=== PATIENT | male | born 1990 | race Caucasian/White ===

== ENCOUNTER 2018-12-02 16:43 | Emergency (ER) | payer MEDICAID ==
[~2018-12-02] VITALS: Ht 180.3 cm; Wt 84.0 kg
[2018-12-02 16:49] VITALS: Ht 180.3 cm; Wt 84.0 kg
--- NOTE | 2018-12-02 17:23 | ERD ---
ER Documentation Chief Complaint Chief Complaint hit face on wall while swimming , no tko/dizziness/peter HPI 28-year-old male with no reported past medical surgical history who presents with complaint of left facial pain after sustaining a laceration to the left cheek. States he jumped into a pool and sustained an injury to his face. Was able to extract himself from the pool under his own power. Noticed bleeding to the left side of face, subsequently family members placed [place] coffee on wound to stop bleeding. He denies any loss of consciousness, persistent hea dache or dizziness, blurry vision, chest pain, shortness of breath, dyspnea, or any other injuries. Does not recall when he got his tetanus vaccination. ROS All systems reviewed and are negative except as per history of present illness. Medications Home Meds Active Scripts Ibuprofen* (Motrin*) 600 Mg Tab, 600 MG PO Q6, #30 TAB Prov:ERINN COMBS PA-C 12/02/18 Allergies Allergies: Coded Allergies: No Known Allergy (Unverified , 12/02/18) FmHx Family History: No diabetes, No coronary disease, No other Physical Exam Vitals Vital Signs Date Temp Pulse Resp B/P (MAP) Pulse Ox O2 O2 Flow FiO2 Time Delivery Rate 12/02/18 99.0 97 16 145/70 99 16:49 (95) Physical Exam I have reviewed the triage vital signs. Const: Well nourished, well developed, appears stated age Eyes: PERRL, no conjunctival injection HENT: NCAT, Neck supple without meningismus CV: RRR, Warm, well-perfused extremities RESP: CTAB, Unlabored respiratory effort GI: soft, non-tender, non-distended, no masses MSK: No gross deformities appreciated Skin: Left cheek with 2 half centimeter , with tissue wound to forehead Neuro: grossly non focal Psych: Appropriate mood and affect. Results 24 hrs Current Medications Medications Dose Sig/Gaurang Start Time Status Last (Trade) Ordered Route PRN Stop Time Admin Dose Reason Admin Diphtheria/ 0.5 ml ONCE ONCE 12/02/18 DC 12/02/18 Tetanus/Acell IM* 17:30 17:42 Pertussis 12/02/18 17:31 (Adacel) Lidocaine 20 ml ONCE ONCE 12/02/18 DC (Xylocaine SC 17:30 1% (Mdv) 20 12/02/18 17:31 ml) Procedures/MDM 28-year-old male presents with facial laceration. Patient is alert appropriate with a unremarkable neurological exam. Tdap given Laceration Repair by me: Anesthesia: 1% lidocaine locally Location: Left cheek Tendon/Joint/Nerves: No injury Foreign body: None detected after copious irrigation and exploration Technique: Simple Interrupted Sutures Complexity: No subcutaneous sutures/mucosal repair/edge excision Post Closure Length: 2 cm Patient's bleeding was easily controlled in the department and there is no indication of anemia. No evidence of compartment syndrome, neurologic injury, vascular injury, open joint, tendon laceration, or foreign body. Patient is appropriate for outpatient follow up. 48 hour wound check. Scar minimization instructions given. Departure Diagnosis: Primary Impression: Laceration Condition: Stable ERINN COMBS PA-C Dec 02, 2018 17:23
[2018-12-02] MEDS ORDERED: IBUP-1542 PO (17:27)
[2018-12-02] MEDS ORDERED: LIDOCAINE 1% (MDV) 20 ML INJ SC ONE (17:30)
[2018-12-02] MEDS ORDERED: DIPHTH/TET/ACEL PERTUSS (ADULT) 0.5 ML VIAL IM* ONE (17:30)
[2018-12-02 18:39] VITALS: BP 138/76; PULSE 77; RESP 18
== END 2018-12-02 18:40 | disposition home or self-care (01) ==
LOC: FTE 16:43
DX: S01.412A Laceration without foreign body of left cheek and temporomandibular area, initial encounter (principal); W22.01XA Walked into wall, initial encounter; Y92.34 Swimming pool (public) as the place of occurrence of the external cause; Z23 Encounter for immunization
CPT/HCPCS: 12011; 90471; 90715; Z7502; Z7610

== ENCOUNTER 2018-12-06 15:38 | Emergency (ER) | payer MEDICAID ==
[~2018-12-06] VITALS: Ht 180.3 cm; Wt 86.0 kg
[~2018-12-06 15:38] MED LIST: IBUP-1542 PO
[2018-12-06 15:41] VITALS: BP 141/77; PULSE 68; RESP 18; Ht 180.3 cm; Wt 86.0 kg
--- NOTE | 2018-12-06 17:57 | ERD ---
ER Documentation Chief Complaint Chief Complaint SUTURE REMOVAL FROM FACE PALCED IN 5 DAYS AGO HPI Patient is a 28-year-old male who presents for a suture removal. He had the sutures placed 5 days ago to the left face. The patient has no complaints. He has no fevers. He has no pus from the wound. He came for suture removal. ROS All systems reviewed and are negative except as per history of present illness. Medications Home Meds Active Scripts Ibuprofen* (Motrin*) 600 Mg Tab, 600 MG PO Q6, #30 TAB Prov:VAZQUEZERINN RUCKER PA-C 12/02/18 Allergies Allergies: Coded Allergies: No Known Allergy (Unverified , 12/02/18) PMhx/Soc History of Surgery: No Anesthesia Reaction: No Hx Neurological Disorder: No Hx Respiratory Disorders: No Hx Cardiac Disorders: No Hx Psychiatric Problems: No Hx Miscellaneous Medical Probl: No Hx Alcohol Use: No Hx Substance Use: No Hx Tobacco Use: Yes FmHx Family History: No diabetes Physical Exam Vitals Vital Signs Date Temp Pulse Resp B/P (MAP) Pulse Ox O2 O2 Flow FiO2 Time Delivery Rate 12/06/18 98.1 68 18 141/77 98 15:41 (98) Physical Exam Const: No acute distress Skin: Incision to the face is clean, dry, and intact Neur: Awake and alert Psych: Normal Mood and Affect Procedures/MDM Suture Removal by me: Sutures removed with tweezers and scissors without incident. Wound shows no evidence of infection, foreign body, neurologic injury, vascular injury, open joint or tendon laceration. Patient to follow up PRN. Departure Diagnosis: Primary Impression: Encounter for removal of sutures Condition: Fair Patient Instructions: Suture Removal, No Complication Referrals: Your doctor Additional Instructions: Call your primary care doctor TOMORROW for an appointment during the next 1 WEEK.Tell the curriculum and assessment director that you were referred from this facility.See the doctor sooner or return here if your condition worsens before your appointment time. RAIN CONSTANTINO MD Dec 06, 2018 17:57
== END 2018-12-06 18:26 | disposition home or self-care (01) ==
LOC: E/R 15:38
DX: Z48.02 Encounter for removal of sutures (principal)
CPT/HCPCS: 99281

== ENCOUNTER 2018-12-10 00:54 | Emergency (ER) | payer MEDICAID ==
[~2018-12-10] VITALS: Ht 180.3 cm; Wt 85.9 kg
[2018-12-10 00:57] VITALS: Ht 180.3 cm; Wt 85.9 kg
--- NOTE | 2018-12-10 02:55 | ERD ---
ER Documentation Chief Complaint Chief Complaint hurts when he swallow, fever x 2 days HPI Patient is a 28 years old male with no known PMHx and recent new smoker since 6 months ago (12 cigarettes per day) presenting to the clinic for fever, chills, and throat pain rated 4/10 x 2 days. Patient denies all other ROS and admits to taking tylenol without resolution with last dosage at 9:00 PM. ROS All systems reviewed and are negative except as per history of present illness. Medications Home Meds Active Scripts Acetaminophen* (Tylophen*) 500 Mg Capsule, 1 CAP PO Q6H PRN for PAIN AND OR ELEVATED TEMP, #20 CAP Prov:MITLAI SHELTON PA-C 12/10/18 Amoxicillin/Potassium Clav (Amox-Clav 875-125 mg Tablet) 875-125 mg Tab, 1 TAB PO BID for 10 Days, #20 TAB Prov:MITALI SHELTON PA-C 12/10/18 Ibuprofen* (Motrin*) 600 Mg Tab, 600 MG PO Q6, #30 TAB Prov:ERINN COMBS PA-C 12/02/18 Allergies Allergies: Coded Allergies: No Known Allergy (Unverified , 12/02/18) PMhx/Soc Medical and Surgical Hx: pt denies Medical Hx, pt denies Surgical Hx History of Surgery: No Anesthesia Reaction: No Hx Neurological Disorder: No Hx Respiratory Disorders: No Hx Cardiac Disorders: No Hx Psychiatric Problems: No Hx Miscellaneous Medical Probl: No Hx Alcohol Use: No Hx Substance Use: No Hx Tobacco Use: Yes Smoking Status: Current every day smoker Physical Exam Vitals Vital Signs Date Temp Pulse Resp B/P (MAP) Pulse Ox O2 O2 Flow FiO2 Time Delivery Rate 12/10/18 101.1 98 20 134/74 98 Room Air 04:27 (94) 12/10/18 101.2 112 20 127/72 96 00:57 (90) Physical Exam Const: No acute distress Head: Atraumatic Eyes: Normal Conjunctiva ENT: Normal Nose and Mouth. Tonsillar enlargement with white lesions without exudates. Left TM erythematous without discharge or perforation noted. Neck: Full range of motion. No meningismus. Resp: Bilateral mid and lower lobe wheezing with diffuse diminished breath sounds. Cardio: Regular rate and rhythm, no murmurs Abd: Soft, non tender, non distended. Normal bowel sounds Skin: No petechiae or rashes Back: No midline or flank tenderness Ext: No cyanosis, or edema Neur: Awake and alert Psych: Normal Mood and Affect Results 24 hrs Current Medications Medications Dose Sig/Gaurang Start Time Status Last (Trade) Ordered Route PRN Stop Time Admin Dose Reason Admin 650 mg ONCE ONCE 12/10/18 DC 12/10/18 Acetaminophen PO 03:00 02:56 (Tylenol 12/10/18 03:01 Tab) Procedures/MDM Patient was seen and evaluated for sore throat, fever, and chills. CXR is unremarkable. Patient's signs and symptoms most likely signify left otitis media with tonsillitis. Patient was given Tylenol with fever reduction. Repeat vitals showed improvement. No sepsis work-up required as patient most likely does not have sepsis or pneumonia. Patient is stable and ready for discharge. F/U with PCP. Patient will be discharged with Augmentin and Tylenol. Departure Diagnosis: Primary Impression: Tonsillitis Additional Impression: Otitis media Otitis media type: suppurative Chronicity: acute Laterality: left Recurrence: non-recurrent Spontaneous tympanic membrane rupture: without spontaneous rupture Qualified Codes: H66.002 - Acute suppurative otitis media without spontaneous rupture of ear drum, left ear Condition: Stable Patient Instructions: Adult Tonsillectomy, Otitis Media, Abx Tx (Adult) Referrals: [facility] Additional Instructions: Patient advised to return to the ED immediately for new or worsening symptoms. Patient advised to follow up with primary care provider in the next 24-48 hours. Patient verbalized understanding and agrees with treatment plan and course of action. If patient has no primary care they may follow up with [facility] [address] [place] [id number] or [facility] [address] [place] [address] or [facility] [address] [place] [address] MITALI SHELTON PA-C Dec 10, 2018 02:55
[2018-12-10] MEDS ORDERED: ACETAMINOPHEN 325 MG TAB PO ONE (03:00)
[2018-12-10] MEDS ORDERED: ACET500C5 PO (04:21)
[2018-12-10] MEDS ORDERED: AMOX1TAB10 PO (04:21)
[2018-12-10 04:27] VITALS: BP 134/74; PULSE 98; RESP 20
== END 2018-12-10 04:41 | disposition home or self-care (01) ==
LOC: FTE 00:54
DX: J03.90 Acute tonsillitis, unspecified (principal); H66.002 Acute suppurative otitis media without spontaneous rupture of ear drum, left ear; F17.210 Nicotine dependence, cigarettes, uncomplicated
CPT/HCPCS: 71046; Z7610